=== PATIENT | female | born 1965 | race Caucasian/White ===

== ENCOUNTER 2016-12-08 19:31 | Emergency (ER) | payer SELFPAY ==
[2016-12-08] MEDS ORDERED: Cyclobenzaprine TAB* 10 MG PO ONE (22:01)
[2016-12-08] MEDS ORDERED: Ibuprofen TAB* 600 MG PO ONE (22:01)
--- NOTE | 2016-12-08 22:10 | UC ---
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 Had a near fall no leg pain or paresthesias no bowel bladder dysfunction ' - History of Current Complaint Chief Complaint: UCBackPain Stated Complaint: BACK PAIN-WC Time Seen by Provider: 12/08/16 21:37 Hx Obtained From: Patient Hx Last Menstrual Period: 3 WKS AGO Onset/Duration: Sudden Onset Timing: Constant Severity Initially: Mild Severity Currently: Moderate Pain Intensity: 6 Pain Scale Used: 0-10 Numeric Back Pain: Is Discrete @ - right lower back Character: Aching, Throbbing, Spasmodic Aggravating: Movement, Lifting, Bending Alleviating: Rest Associated Signs And Symptoms: Positive: Negative Related History: Occupational Injury - Allergies/Home Medications Allergies/Adverse Reactions: Allergies Allergy/AdvReac Type Severity Reaction Status Date / Time No Known Allergies Allergy Verified 12/08/16 21:48 Home Medications: Home Medications Ibuprofen TAB* [Advil TAB*] 800 mg PO Q6H PRN 12/08/16 [History Confirmed ] PMH/Surg Hx/FS Hx/Imm Hx Previously Healthy: Yes - Surgical History Surgical History: Yes Surgery Procedure, Year, and Place: C-SECT. - Family History Known Family History: Positive: Hypertension - Social History Alcohol Use: Occasionally Substance Use Type: None Smoking Status (MU): Never Smoked Tobacco Review of Systems Constitutional: Negative Skin: Negative Eyes: Negative ENT: Negative Respiratory: Negative Cardiovascular: Negative Gastrointestinal: Negative Genitourinary: Negative Motor: Negative Neurovascular: Negative Musculoskeletal: Myalgia Neurological: Negative Psychological: Negative All Other Systems Reviewed And Are Negative: Yes Physical Exam Triage Information Reviewed: Yes Appearance: Well-Appearing, No Pain Distress, Well-Nourished Vital Signs: Initial Vital Signs Pulse 74 12/08/16 21:41 Resp 16 12/08/16 21:41 BP 138/101 12/08/16 21:41 Pulse Ox 96 12/08/16 21:41 Eyes: Positive: Conjunctiva Clear ENT: Positive: Hearing grossly normal, Pharynx normal. Negative: Nasal congestion, Nasal drainage, TMs normal, Trismus, Muffled/hoarse voice Neck: Positive: Supple, Nontender, No Lymphadenopathy Respiratory: Positive: Lungs clear, Normal breath sounds, No respiratory distress Cardiovascular: Positive: RRR, No Murmur Musculoskeletal: Positive: ROM Intact, No Edema Neurological Exam: Normal Neurological: Positive: Alert Psychological Exam: Normal Skin Exam: Normal Back Pain Course/Dx - Differential Dx/Diagnosis Provider Diagnoses: acute right paraspinous muscle spasm/pain Discharge - Discharge Plan Condition: Stable Disposition: HOME Prescriptions: Cyclobenzaprine TAB* [Flexeril TAB*] 5 mg PO TID PRN #21 tab PRN Reason: Spasms Ibuprofen TAB* [Motrin TAB*] 600 mg PO QID PRN #40 tab PRN Reason: Pain Patient Education Materials: Low Back Strain (ED) Additional Instructions: don't take muscle relaxer and drive or work PT consult see your MD in 1-2 weeks if not better
[2016-12-08 22:16] VITALS: BP 138/101
== END 2016-12-08 22:25 | disposition home or self-care (01) ==
LOC: UCCORT 19:31
DX: M62.830 Muscle spasm of back (principal); M54.5 Low back pain
CPT/HCPCS: 99202; A9270-GY; G0463

== ENCOUNTER 2017-08-13 16:52 | Emergency (ER) | payer SELFPAY ==
--- NOTE | 2017-08-13 18:01 | UC ---
Skin Complaint HPI - HPI Summary HPI Summary: 52 year old female with skin complaint. 17cm x 7cm erythema, painful tingling, and warm skin irritation on medial arm spreading over the last few hours. Open area at center with deeper induration. Patient thinks she was bit/stung by something outside at work. Patient works for a [employer]. PCP Austin ARMSTRONG. [ End ] - History of Current Complaint Chief Complaint: UCSkin Time Seen by Provider: 08/13/17 17:39 Stated Complaint: RIGHT ARM SKIN COMPLAINT Hx Obtained From: Patient Hx Last Menstrual Period: 3 WKS AGO Onset/Duration: Still Present Skin Exposure Onset/Duration: Hours Ago Timing: Constant Onset Severity: Moderate Character: Pruritus Aggravating Factor(s): Nothing Alleviating Factor(s): Nothing Associated Signs & Symptoms: Positive: Negative - Allergy/Home Medications Allergies/Adverse Reactions: Allergies Allergy/AdvReac Type Severity Reaction Status Date / Time No Known Allergies Allergy Verified 08/13/17 17:33 Home Medications: Home Medications Ibuprofen TAB* [Advil TAB*] 200 mg PO Q6H PRN 08/13/17 [History Confirmed ] Review of Systems Skin: Rash Is Patient Immunocompromised?: No All Other Systems Reviewed And Are Negative: Yes PMH/Surg Hx/FS Hx/Imm Hx Previously Healthy: Yes - Surgical History Surgical History: Yes Surgery Procedure, Year, and Place: C-SECT. - Family History Known Family History: Positive: Hypertension - Social History Occupation: Employed Full-time Lives: With Family Alcohol Use: Occasionally Substance Use Type: None Smoking Status (MU): Former Smoker Length of Time of Smoking/Using Tobacco: 11/08 PPD on and off for 30 years When Did the Patient Quit Smoking/Using Tobacco: ~2011 - Immunization History Most Recent Influenza Vaccination: Not the Season Physical Exam Triage Information Reviewed: Yes Appearance: Well-Appearing, No Pain Distress, Well-Nourished Vital Signs: Initial Vital Signs Temp 97.8 F 08/13/17 17:30 Pulse 66 08/13/17 17:30 Resp 18 08/13/17 17:30 Pulse Ox 99 08/13/17 17:30 Vital Signs Reviewed: Yes Eye Exam: Normal ENT Exam: Normal Neck exam: Normal Neck: Positive: 1 Respiratory Exam: Normal Cardiovascular Exam: Normal Musculoskeletal Exam: Normal Neurological Exam: Normal Psychological Exam: Normal Skin Exam: Normal Skin: Positive: Other - 17cm x 7cm erythema with center raised, red with break in skin about size of nickel. no streaking Course/Dx - Course Course Of Treatment: she declined prednisone at this time. appears to be allergy mediated at this time and if develop s/s of infection like fever and redness then start the antibiotics. it happened at work . she is agreeable to plan . - Diagnoses Provider Diagnoses: insect bite right arm Discharge - Discharge Plan Condition: Good Disposition: HOME Prescriptions: Cephalexin CAP* [Keflex 500 CAP*] 500 mg PO TID #30 cap Hydrocortisone Valerate [Westcort] 0.2 % TOPICAL BID PRN #1 tube PRN Reason: Itching Patient Education Materials: Insect Bite or Sting (ED) Referrals: [facility] [Primary Care Provider] - 4 Days Additional Instructions: As we discussed you may use the steroid cream as needed for itch. Benadryl may also be used. If you develop fever or the redness is darkening and spreading then start the antibiotics.
== END 2017-08-13 18:09 | disposition home or self-care (01) ==
LOC: UCCORT 16:52
DX: S40.861A Insect bite (nonvenomous) of right upper arm, initial encounter (principal); W57.XXXA Bitten or stung by nonvenomous insect and other nonvenomous arthropods, initial encounter; Y92.9 Unspecified place or not applicable
CPT/HCPCS: 99212; G0463

== ENCOUNTER 2017-09-16 18:50 | Emergency (ER) | payer SELFPAY ==
--- NOTE | 2017-09-16 19:50 | UC ---
Back Pain HPI - HPI Summary HPI Summary: 52 YEAR OLD FEMALE PRESENTS WITH COMPLAINS OF RIGHT LOWER BACK/HIP PAIN - History of Current Complaint Chief Complaint: UCBackPain Stated Complaint: BACK INJURY Time Seen by Provider: 09/16/17 19:49 Hx Obtained From: Patient Hx Last Menstrual Period: 08/29/17 Onset/Duration: Sudden Onset Timing: Constant Severity Initially: Moderate Severity Currently: Moderate Pain Scale Used: 0-10 Numeric - 8 Character: Sharp Aggravating Factor(s): Movement Associated Signs And Symptoms: Positive: Swelling - Allergies/Home Medications Allergies/Adverse Reactions: Allergies Allergy/AdvReac Type Severity Reaction Status Date / Time spring soap Allergy Hives Uncoded 09/16/17 19:49 PMH/Surg Hx/FS Hx/Imm Hx Previously Healthy: Yes - Surgical History Surgical History: Yes Surgery Procedure, Year, and Place: C-SECT. - Family History Known Family History: Positive: Hypertension - Social History Alcohol Use: Occasionally Substance Use Type: None Smoking Status (MU): Former Smoker Length of Time of Smoking/Using Tobacco: 11/08 PPD on and off for 30 years When Did the Patient Quit Smoking/Using Tobacco: ~2011 - Immunization History Most Recent Influenza Vaccination: Not the 2016/2017 Season Review of Systems Constitutional: Negative Skin: Negative Eyes: Negative ENT: Negative Respiratory: Negative Cardiovascular: Negative Gastrointestinal: Negative Genitourinary: Negative Motor: Negative Neurovascular: Negative Musculoskeletal: Other: - RIGHT LOWER BACK PAIN/SPASM Neurological: Negative Psychological: Negative All Other Systems Reviewed And Are Negative: Yes Physical Exam Triage Information Reviewed: Yes Vital Signs: Initial Vital Signs Temp 36.6 C 09/16/17 19:40 Pulse 84 09/16/17 19:40 Resp 18 09/16/17 19:40 BP 117/84 09/16/17 19:40 Pulse Ox 100 09/16/17 19:40 Vital Signs Reviewed: Yes Eye Exam: Normal ENT Exam: Normal Dental Exam: Normal Neck exam: Normal Neck: Positive: 1 Respiratory Exam: Normal Cardiovascular Exam: Normal Abdominal Exam: Normal Musculoskeletal: Positive: Other: - RIGHT LOWER BACK PAIN/SPASM Neurological Exam: Normal Psychological Exam: Normal Skin Exam: Normal Back Pain Course/Dx - Differential Dx/Diagnosis Provider Diagnoses: RIGHT LOWER BACK PAIN/SPASM Discharge - Discharge Plan Condition: Stable Disposition: HOME Prescriptions: Meloxicam(NF) [Mobic(NF)] 7.5 mg PO BID #30 tab Methocarbamol TAB* [Robaxin 500 MG TAB*] 500 mg PO TID PRN #30 tab PRN Reason: Spasms - Back Patient Education Materials: Muscle Spasm (ED), Hip Pain (ED) Forms: *Work Release Referrals: Juma Prieto MD [Medical Doctor] - [facility] – [place], [place] Physical therapy,PT [Medical Doctor] - [facility] [Primary Care Provider] -
--- NOTE | 2017-09-16 21:20 | RAD ---
Indication: Pain RIGHT lower back and posterior RIGHT hip and groin following injury September 09, 2017. Comparison: No relevant prior exams available on the [facility] [place] [facility] for comparison. Technique: Upright AP pelvis and AP and frog-leg lateral views RIGHT hip. Report: The RIGHT hip is normally located. Negative for fracture of the RIGHT hip or pelvis. Negative for pelvic joint diastases. The RIGHT hip is remarkable for mild osteophytic lipping and moderately severe axial joint space narrowing with associated mild subchondral sclerosis at the acetabular roof. Only slight loss of femoral head sphericity. Unremarkable soft tissue contours. IMPRESSION: 1. No radiographic evidence for RIGHT hip or pelvic fracture. 2. 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
[2017-09-16 21:39] VITALS: BP 123/81
== END 2017-09-16 22:04 | disposition home or self-care (01) ==
LOC: UCCORT 18:50
DX: M54.5 Low back pain (principal); M62.830 Muscle spasm of back; Z87.891 Personal history of nicotine dependence
CPT/HCPCS: 99212; G0463